=== PATIENT | male | born 1985 | race Caucasian/White ===

== ENCOUNTER 2020-08-08 16:12 | Emergency (ER) | payer OTHER ==
[2020-08-08 17:30] VITALS: BP 106/69; PULSE 82; RESP 18; TEMP 98.4
--- NOTE | 2020-08-08 17:35 | ED ---
URI HPI - General Chief Complaint: Upper Respiratory Infection Stated Complaint: Headache,Fever,cough, SOB Source: patient, RN notes reviewed Mode of arrival: ambulatory Limitations: no limitations - History of Present Illness Initial Comments: Patient is a 35-year-old male that presents to emergency department with cold- like symptoms including cough and chest congestion generalized fatigue and muscle aches. He states that he had symptoms approximately 5 days ago, last Saturday. He denied any other symptoms or complaints. He was in no pain or distress. He denied any chest pain headache nausea vomiting diarrhea constipation fever fatigue chills - Related Data Allergies Allergy/AdvReac Type Severity Reaction Status Date / Time No Known Allergies Allergy Verified 08/08/20 17:30 Review of Systems ROS Statement: Those systems with pertinent positive or pertinent negative responses have been documented in the HPI. ROS Other: All systems not noted in ROS Statement are negative. Past Medical History Past Medical History: No Reported History History of Any Multi-Drug Resistant Organisms: None Reported Past Surgical History: No Surgical Hx Reported Past Psychological History: No Psychological Hx Reported Smoking Status: Never smoker Past Alcohol Use History: Abuse, Daily Past Drug Use History: None Reported General Exam Limitations: no limitations General appearance: alert, in no apparent distress Head exam: Present: atraumatic, normocephalic, normal inspection Eye exam: Present: normal appearance, PERRL, EOMI. Absent: scleral icterus, conjunctival injection, periorbital swelling Neck exam: Present: normal inspection. Absent: tenderness, meningismus, lymphadenopathy Respiratory exam: Present: normal lung sounds bilaterally. Absent: respiratory distress, wheezes, rales, rhonchi, stridor Cardiovascular Exam: Present: regular rate, normal rhythm, normal heart sounds. Absent: systolic murmur, diastolic murmur, rubs, gallop, clicks GI/Abdominal exam: Present: soft, normal bowel sounds. Absent: distended, tenderness, guarding, rebound, rigid Extremities exam: Present: normal inspection, full ROM, normal capillary refill. Absent: tenderness, pedal edema, joint swelling, calf tenderness Neurological exam: Present: alert, oriented X3, CN II-XII intact Psychiatric exam: Present: normal affect, normal mood Skin exam: Present: warm, dry, intact, normal color. Absent: rash Course Vital Signs 08/08/20 17:27 Temperature 98.4 F Pulse Rate 82 Respiratory 18 Rate Blood Pressure 106/69 O2 Sat by Pulse 99 Oximetry Medical Decision Making - Medical Decision Making 35-year-old male with cold-like symptoms. Chest x-ray, Covid test ordered. Patient declined Covid swab states that he knows oxygens is good. Covid-positive. Case discussed with Dr. Sorto, patient discharged home per patient's request. - Lab Data Lab Results 08/08/20 Range/Units 17:32 Coronavirus (PCR) Detected A (Not Detectd) - Radiology Data Radiology results: report reviewed, image reviewed Chest x-ray: Some mild bilateral basilar pulmonary linear infiltrate atelectasis. Disposition Clinical Impression: COVID-19 Disposition: HOME SELF-CARE Condition: Stable Instructions (If sedation given, give patient instructions): Upper Respiratory Infection (ED) Additional Instructions: Please return to the Emergency Department if symptoms worsen or any other concerns. Follow-up primary care in 3-5 days. Per cc guidelines and quarantine for 10-14 days. Take [id number]-tnu-wntzvso anti-inflammatories as needed for symptom control. Is patient prescribed a controlled substance at d/c from ED?: No Referrals: Nonstaff,Physician [Primary Care Provider] - 1-2 days Time of Disposition: 18:43
--- NOTE | 2020-08-08 18:13 | XR ---
EXAMINATION TYPE: XR chest 2V DATE OF EXAM: 08/08/2020 COMPARISON: NONE HISTORY: Fever and cough TECHNIQUE: 2 views FINDINGS: There is some minimal linear infiltrate and atelectasis left lung base. There is small line ar density also right lung base. Heart size is normal. There are no hilar masses. There is no heart f ailure. There is no pleural effusion. Bony thorax is intact. IMPRESSION: There is some mild bilateral basilar pulmonary linear infiltrate and atelectasis.
== END 2020-08-08 19:17 | disposition home or self-care (01) ==
LOC: EC 16:12
DX: U07.1 COVID-19 (principal)
CPT/HCPCS: 71046; 87635; 99285

== ENCOUNTER 2020-08-11 16:02 | Emergency (ER) | payer OTHER ==
--- NOTE | 2020-08-11 17:46 | ED ---
General Adult HPI <Antony Brown - Last Filed: 08/11/20 17:47> <Nasir Garsia - Last Filed: 08/11/20 22:07> - General Chief complaint: Shortness of Breath Stated complaint: Covid+, SAMREEN - History of Present Illness Initial comments: 35-year-old male presents to the emergency department with a chief complaint of chest pain shortness of breath. States he's been having symptoms for the past 7 days. States he tested positive for Covid 3 days ago and had pneumonia on chest x-ray. Reports increased exertional dyspnea as well as midsternal, pleuritic chest pain. Reports myalgias, fatigue and nonproductive cough. Reports taking iuqe-mpi-eyavlyl antipyretics for fever. 93% oxygen room air. (Antony Brown) Patient is a 35-year-old male that presents to emergency department for increased shortness of breath with chest pain. She was seen 3 days ago and test positive for Covid and said that he was feeling good enough to go home and do conservative management. He reports today that he is gradually gotten worse over the last 3 days to the point were he is short of breath on exertion. He notes he was taking [id number]-ikqxzss medications to help with fever, muscle aches. She denied any new cough nausea vomiting diarrhea constipation fatigue. (Nasir Garsia) - Related Data Home Medications Medication Instructions Recorded Confirmed Atorvastatin Calcium [Lipitor] 20 mg PO DAILY 08/11/20 08/11/20 Buprenorphine HCl/Naloxone HCl 2 tab SL DAILY 08/11/20 08/11/20 [Buprenorphin-Naloxon 8-2 mg Sl] DULoxetine HCL [Cymbalta] 30 mg PO DAILY 08/11/20 08/11/20 Esomeprazole Magnesium [NexIUM] 40 mg PO BID 08/11/20 08/11/20 Hydrochlorothiazide 12.5 mg PO DAILY 08/11/20 08/11/20 [hydroCHLOROthiazide] Metoprolol Tartrate [Lopressor] 12.5 mg PO TID 08/11/20 08/11/20 Propranolol [Inderal] 10 mg PO BID 08/11/20 08/11/20 Sucralfate [Carafate] 1 gm PO BID 04/01/21 04/01/21 Allergies Allergy/AdvReac Type Severity Reaction Status Date / Time No Known Allergies Allergy Verified 08/11/20 20:54 Review of Systems ROS Other: All systems not noted in ROS Statement are negative. <Antony Brown - Last Filed: 08/11/20 17:47> ROS Other: All systems not noted in ROS Statement are negative. <Nasir Garsia - Last Filed: 08/11/20 22:07> ROS Statement: Those systems with pertinent positive or pertinent negative responses have been documented in the HPI. Past Medical History Past Medical History: No Reported History History of Any Multi-Drug Resistant Organisms: None Reported Past Surgical History: No Surgical Hx Reported Past Psychological History: No Psychological Hx Reported Smoking Status: Never smoker Past Alcohol Use History: Abuse, Daily Past Drug Use History: None Reported <Antony Brown - Last Filed: 08/11/20 17:47> General Exam General appearance: alert, in no apparent distress Head exam: Present: atraumatic, normocephalic, normal inspection Eye exam: Present: normal appearance, PERRL, EOMI. Absent: scleral icterus, conjunctival injection, periorbital swelling Neck exam: Present: normal inspection. Absent: tenderness, meningismus, lymphadenopathy Respiratory exam: Present: decreased breath sounds (Lower lobes bilaterally). Absent: respiratory distress, wheezes, rales, rhonchi, stridor Cardiovascular Exam: Present: regular rate, normal rhythm, normal heart sounds. Absent: systolic murmur, diastolic murmur, rubs, gallop, clicks GI/Abdominal exam: Present: soft, normal bowel sounds. Absent: distended, tenderness, guarding, rebound, rigid Extremities exam: Present: normal inspection, full ROM, normal capillary refill. Absent: tenderness, pedal edema, joint swelling, calf tenderness Neurological exam: Present: alert, oriented X3, CN II-XII intact Psychiatric exam: Present: normal affect, normal mood Skin exam: Present: warm, dry, intact, normal color. Absent: rash <Nasir Garsia - Last Filed: 08/11/20 22:07> Course Vital Signs 08/11/20 08/11/20 17:41 22:04 Temperature 103.0 F H 99 F Pulse Rate 117 H 87 Respiratory 20 18 Rate Blood Pressure 118/74 121/80 O2 Sat by Pulse 94 L 95 Oximetry Medical Decision Making - Lab Data Result diagrams: 08/11/20 19:40 08/11/20 19:40 - Radiology Data Radiology results: report reviewed, image reviewed <Nasir Garsia - Last Filed: 08/11/20 22:07> - Medical Decision Making 35-year-old not tested positive for Covid 3 days ago complaining of increased shortness of breath or chest pain. Labs, and thousand milligrams Tylenol 600 mg of Motrin ordered. Labs chloride 85, carbon dioxide 35. Patient's fever and vitals within normal limits on recheck. Case discussed with Dr. Dao, patient can discharge home with conservative management continued. (Nasir Garsia) - Lab Data Lab Results 08/11/20 08/11/20 08/11/20 Range/Units 19:40 19:40 19:40 WBC 7.7 (3.8-10.6) k/uL RBC 4.71 (4.30-5.90) m/uL Hgb 15.5 (13.0-17.5) gm/dL Hct 42.4 (39.0-53.0) % MCV 90.0 (80.0-100.0) fL MCH 32.8 (25.0-35.0) pg MCHC 36.5 (31.0-37.0) g/dL RDW 11.8 (11.5-15.5) % Plt Count 208 (150-450) k/uL MPV 7.4 Neutrophils % 82 % Lymphocytes % 11 % Monocytes % 5 % Eosinophils % 0 % Basophils % 1 % Neutrophils # 6.3 (1.3-7.7) k/uL Lymphocytes # 0.9 L (1.0-4.8) k/uL Monocytes # 0.4 (0-1.0) k/uL Eosinophils # 0.0 (0-0.7) k/uL Basophils # 0.1 (0-0.2) k/uL Hyperchromasia Slight PT 10.1 (9.0-12.0) sec INR 0.9 (<1.2) APTT 26.4 (22.0-30.0) sec D-Dimer 0.36 (<0.60) mg/L FEU Sodium 131 L (137-145) mmol/L Potassium 3.6 (3.5-5.1) mmol/L Chloride 85 L (98-107) mmol/L Carbon Dioxide 35 H (22-30) mmol/L Anion Gap 11 mmol/L BUN 14 (9-20) mg/dL Creatinine 0.80 (0.66-1.25) mg/dL Est GFR (CKD-EPI)AfAm >90 (>60 ml/min/1.73 sqM) Est GFR (CKD-EPI)NonAf >90 (>60 ml/min/1.73 sqM) Glucose 113 H (74-99) mg/dL Calcium 8.9 (8.4-10.2) mg/dL Total Bilirubin 1.0 (0.2-1.3) mg/dL AST 67 H (17-59) U/L ALT 45 (4-49) U/L Alkaline Phosphatase 58 (38-126) U/L Troponin I (0.000-0.034) ng/mL Total Protein 8.1 (6.3-8.2) g/dL Albumin 4.9 (3.5-5.0) g/dL 08/11/20 Range/Units 19:40 WBC (3.8-10.6) k/uL RBC (4.30-5.90) m/uL Hgb (13.0-17.5) gm/dL Hct (39.0-53.0) % MCV (80.0-100.0) fL MCH (25.0-35.0) pg MCHC (31.0-37.0) g/dL RDW (11.5-15.5) % Plt Count (150-450) k/uL MPV Neutrophils % % Lymphocytes % % Monocytes % % Eosinophils % % Basophils % % Neutrophils # (1.3-7.7) k/uL Lymphocytes # (1.0-4.8) k/uL Monocytes # (0-1.0) k/uL Eosinophils # (0-0.7) k/uL Basophils # (0-0.2) k/uL Hyperchromasia PT (9.0-12.0) sec INR (<1.2) APTT (22.0-30.0) sec D-Dimer (<0.60) mg/L FEU Sodium (137-145) mmol/L Potassium (3.5-5.1) mmol/L Chloride (98-107) mmol/L Carbon Dioxide (22-30) mmol/L Anion Gap mmol/L BUN (9-20) mg/dL Creatinine (0.66-1.25) mg/dL Est GFR (CKD-EPI)AfAm (>60 ml/min/1.73 sqM) Est GFR (CKD-EPI)NonAf (>60 ml/min/1.73 sqM) Glucose (74-99) mg/dL Calcium (8.4-10.2) mg/dL Total Bilirubin (0.2-1.3) mg/dL AST (17-59) U/L ALT (4-49) U/L Alkaline Phosphatase (38-126) U/L Troponin I <0.012 (0.000-0.034) ng/mL Total Protein (6.3-8.2) g/dL Albumin (3.5-5.0) g/dL - Radiology Data Rest x-ray: Acute pneumonic infiltrates worse than the prior study (Nasir Garsia) Disposition <Antony Brown - Last Filed: 08/11/20 17:47> Is patient prescribed a controlled substance at d/c from ED?: No Time of Disposition: 22:07 <Nasir Garsia - Last Filed: 08/11/20 22:07> Clinical Impression: COVID-19 Disposition: HOME SELF-CARE Condition: Stable Instructions (If sedation given, give patient instructions): Coronavirus Disease 2019 (COVID-19) Additional Instructions: Please return to the Emergency Department if symptoms worsen or any other concerns. Rest, avoid any strenuous activity to avoid shortness of breath. Viral illnesses are usually self-limited and it takes 5-7 days to reach the peak and then a slow return to normal. Take Tylenol 500 and Motrin 600 alternating every 4-6 hours. Follow-up with primary care soon as possible. Referrals: None,Stated [Primary Care Provider] - 1-2 days
[2020-08-11 19:51] LABS: Basophils # (A) 0.1 k/uL (0-0.2); Basophils % (A) 1 %; Eosinophils % (A) 0 %; HCT 42.4 % (39.0-53.0); HGB 15.5 gm/dL (13.0-17.5); Hyperchromasia Slight; Lymphocytes # (A) 0.9 k/uL (1.0-4.8); Lymphocytes % (A) 11 %; MCH 32.8 pg (25.0-35.0); MCHC 36.5 g/dL (31.0-37.0); Mean Platelet Volume 7.4; Monocytes # (A) 0.4 k/uL (0-1.0); Monocytes % (A) 5 %; Neutrophils # (A) 6.3 k/uL (1.3-7.7); Neutrophils % (A) 82 %; Platelet Count 208 k/uL (150-450); RBC 4.71 m/uL (4.30-5.90); RDW 11.8 % (11.5-15.5); WBC 7.7 k/uL (3.8-10.6)
[2020-08-11 19:55] LABS: ALT 45 U/L (4-49); AST 67 U/L (17-59); African American GFR (CKD) >90 (>60 ml/min/1.73 sqM); Albumin 4.9 g/dL (3.5-5.0); Alkaline Phosphatase 58 U/L (38-126); Anion Gap 11 mmol/L; Blood Urea Nitrogen 14 mg/dL (9-20); Calcium 8.9 mg/dL (8.4-10.2); Carbon Dioxide 35 mmol/L (22-30); Chloride 85 mmol/L (98-107); Glucose 113 mg/dL (74-99); Non-African American GFR(CKD) >90 (>60 ml/min/1.73 sqM); Potassium 3.6 mmol/L (3.5-5.1); Sodium 131 mmol/L (137-145); Total Protein 8.1 g/dL (6.3-8.2)
[2020-08-11] MEDS ORDERED: IBUPROFEN 600 MG TAB PO STA (19:58)
[2020-08-11] MEDS ORDERED: ACETAMINOPHEN TAB 500 MG TAB PO STA (19:58)
[2020-08-11 20:04] LABS: D-Dimer 0.36 mg/L FEU (<0.60); INR 0.9 (<1.2); Partial Thromboplastin Time 26.4 sec (22.0-30.0); Prothrombin Time 10.1 sec (9.0-12.0)
--- NOTE | 2020-08-11 20:59 | XR ---
EXAMINATION TYPE: XR chest 2V DATE OF EXAM: 08/11/2020 COMPARISON: 08/08/2020 HISTORY: Cough TECHNIQUE: Frontal and lateral views of the chest are obtained. FINDINGS: There are scattered partially consolidative and interstitial opacities bilaterally worse i n the interval since the prior study. There is no pleural effusion or pneumothorax. The heart size is normal. The pulmonary vasculature is not congested. The osseous structures are inta ct IMPRESSION: Acute pneumonic infiltrates worse on the prior study
[2020-08-11 22:05] VITALS: BP 121/80; PULSE 87; RESP 18; TEMP 99
== END 2020-08-11 23:04 | disposition home or self-care (01) ==
LOC: EC 16:02
DX: U07.1 COVID-19 (principal)
CPT/HCPCS: 36415; 71046; 80053; 84484; 85025; 85379; 85610; 85730; 99285